=== PATIENT | male | born 1970 | race Caucasian/White ===

== ENCOUNTER 2025-08-09 12:01 | Emergency (ER) | payer OTHER, SELFPAY ==
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
[2025-08-09 12:02] VITALS: BP 169/120; PULSE 86; RESP 16; TEMP 36.8; O2SAT 97
[2025-08-09] MEDS: HYDROcodone/acetaminophen (*CRX) 5-325 MG TABLET 1 TAB PO (12:42)
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
--- OUTSIDE RECORDS SUMMARY | 2025-08-09 12:55 | XMS_ITS | Patient Health Record ---
Author Organization [facility] Address [address] [address] [place] [address] Care Team Providers Care Security Operations Analyst Name Role Phone Eugenio Wright Unavailable [phone] Reason For Referral No Information Problems Problem Type SNOMED Code ICD Code Onset Dates Problem Status W/U Status Risk Notes Problem Lumbar radiculopathy (497514430) Radiculopat hy, lumbar region (M54.16) Active confirmed Plan Of Treatment Pending Test Test Name Order Date EMG LE 5+with NC +6 Nerves 08/07/2019
--- OUTSIDE RECORDS SUMMARY | 2025-08-09 12:55 | XMS_ITS | Encounter Summary ---
Author Organization [facility] Address [address] [facility] [place] [address] Care Team Providers Care Public Improvement Inspector Name Role Phone Sweetie Jacome MD Primary Care Provider Anisa Tobin RN Unavailable [phone] Miak Layton MD Unavailable Gold Hawkins Unavailable Stephenie Banda RN Unavailable [phone] Nilson Torres MD Unavailable Sophia Schulz RN Unavailable Juan David Lindsay MD Unavailable Sweetie Jacome MD Unavailable Gilberto Caballero MD Unavailable Sweetie Jacome MD Unavailable [phone] Gilberto Caballero MD Unavailable Encounter Details Date Type Department Care Team (Late st Contact Info) Description 12/10/2014 Therapy Visit [facility] [address] [place] [address] Unknown, Provider Social History Tobacco Use Types Packs/Day Years Used Date Smoking Tobacco: Never Smokeless Tobacco: Never Alcohol Use Standard Drinks/Week Comments No 0 (1 standard drink = 0.6 oz pur e alcohol) Sex and Gender Information Value Date Recorded Sex Assigned at Not on file Legal Sex Male 7:32 PM CDT Gender Identity Not on file Sexual Orientation Not on file 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 Answer Date of Assessment Author No 10/01/2014 7:23 AM Romina Brooke RN * Is person blind or have serious difficulty seeing? Answer Date of Assessment Author No 10/01/2014 7:23 AM Romina Brooke RN * Does person have serious difficulty walking/climbing stairs? Answer Date of Assessment Author No 10/01/2014 7:23 AM Romina Brooke RN * Does person have difficulty dressing/bathing? Answer Date of Assessment Author No 10/01/2014 7:23 AM Romina Brooke RN * Does person have difficulty doing errands alone? Answer Date of Assessment Author No 10/01/2014 7:23 AM Romina Brooke RN documented as of this encounter Mental Status * Does person have difficulty concentrating/remembering/making decisions? Answer Entry Date Author No 10/01/2014 7:23 AM Romina Brooke RN documented in this encounter Plan of Treatment Not on file documented as of this encounter Visit Diagnoses Not on filedocumented in this encounter Care Teams Public Improvement Inspector Relationship Specialty Start Date End Date Sweetie Jacome MD [address] [place] [address] PCP - General Family Medicine 08/22/14 Sweetie Jacome MD [address] [place] [address] PCP - Attributed-Exclusive Choice 03/31/17 02/21/19 Gilberto Caballero MD [address] [place] [address] PCP - Attributed-Exclusive Choice 02/22/19 04/23/19 Sweetie Jacome MD [address] [facility] [address] [place] [address] PCP - Attributed-MSSP 03/16/19 05/15/19 Gilberto Caballero MD [address] [place] [address] [address] [place] [address] PCP - Attributed-MSSP 05/16/19 01/01/21 Anisa Tobin RN Maintenance Technician 3Rd Shift 09/30/14 07/09/18 Maik Layton MD Orthopedic Surgery 08/17/15 Gold Hawkins [address] [facility] [address] [place] [address] Care Coordination Specialist Care Management 03/08/17 03/15/17 Stephenie Banda, RN Helper Steel FabricationDrying Equipment Operator 03/08/17 03/16/17 [place] [id number] [address] Neurological Surgery 03/22/17 Sophia Schulz RN Helper Steel FabricationDrying Equipment Operator 11/07/17 11/12/17 Juan David Lindsay MD [facility] [address] [place], [place] [id number] Anesthesiology 05/14/18 documented as of this encounter
--- OUTSIDE RECORDS SUMMARY | 2025-08-09 12:55 | XMS_ITS | Clinical Summary ---
Author Organization [facility] [employer] Address [address] [place] [address] Care Team Providers Care Cableman Name Role Phone Sweetie Jacome MD Primary Care Provider [phone] Maik Layton MD Unavailable [phone] Nilson Torres MD Unavailable Juan David Lindsay MD Unavailable [phone] Source Comments [facility],non-owned Affiliates and Associated Physician Practices is amultiple site organization consisting of ambulatory clinics and hospital sitesin [place], [place], [place] and [place]. This disclosure is being madepursuant to the Care Everywhere program and may not contain all information available regarding this patient. Last updated 18.[facility] Allergies No known active allergies Medications * Be aware that medications may not be up to date on this document. Alwaysverify current medications with the patient. albuterol HFA (PROVENTIL;ANASTACIA TOLIN;PROAIR) 108 (90 BASE) MCG/ACT inhaler Inhale 2 Puffs by mouth every 4 hours as needed for Shortness of Breath, Wheezing or Cough 1 Inhaler 5 04/14/20 17 Active Additional Information Patient not taking.Reported on 07/22/2018 losartan-hydro CHLOROthiazide (HYZAAR) 100-25 MG tabletIndicati ons:Hypertensi on Take 1 tablet by mouth once daily Reasons: High Blood Pressure Disorder 30 tablet 5 05/28/20 18 Active amitriptyline (ELAVIL) 50 MG tabletIndicati ons:Pain Take 1 tablet by mouth at bedtime Reasons: Pain 30 tablet 5 07/10/20 18 Active ALPRAZolam (XANAX) 0.25 MG tabletIndicati ons:Other chest pain,Family history of early CAD,Panic attack Take 1 tablet by mouth 3 times daily as needed for Anxiety 20 tablet 07/24/20 18 Active naproxen (NAPROSYN) 500 MG tablet Take 1 tablet by mouth 2 times daily 60 tablet 07/30/20 18 Active celecoxib (CELEBREX) 200 MG capsuleIndicat ions:Back Pain Take 1 capsule by mouth once daily Reasons: Backache 30 capsule 5 11/06/19 19 Active pregabalin (LYRICA) 150 MG capsuleIndicat ions:Back Pain Take 1 capsule by mouth 2 times daily Reasons: Backache 60 capsule 11/06/19 19 Active DULoxetine (CYMBALTA) 60 MG capsuleIndicat ions:Chronic right-sided low back pain with right-sided sciatica,Moder ate single current episode of major depressive disorder (HCC) TAKE 1 CAPSULE BY MOUTH EVERY DAY FOR MAJOR DEPRESSIVE DISORDER OR MUSCULOSKELETAL PAIN 30 capsule 11/06/19 19 Active cyclobenzaprin e (FLEXERIL) 10 MG tabletIndicati ons:Chronic right-sided low back pain with right-sided sciatica Take 1 tablet by mouth 3 times daily as needed (BACK PAIN) 90 tablet 11/30/19 19 Active Active Problems Problem Noted Date Diagnosed Date Chronic midline low back pain with bilateral sci atica 11/07/2017 Moderate single current epis ode of major depressive disorder 02/14/2017 Chronic gout of right foot 02/14/2017 Essential hypertension 02/01/2017 Hyperlipemia, mixed 02/01/2017 Overview (02/01/2017): 10-year risk = 6.2 Statin therapy recommended: No Acute midline low back pain with bilateral sciat ica 06/14/2016 Left-sided thoracic back pain 06/02/2015 Resolved Problems Problem Noted Date Diagnosed Date Resolved Date Hypoxia 03/07/2017 03/22/2017 Chronic midline low back alvarado n with right-sided sciatica 07/13/2016 05/10/2018 Chronic right-sided low back pain with right-sided sciatica 06/14/2016 05/10/2018 Right-sided low back pain wi th right-sided sciatica 06/02/2015 05/10/2018 Herniation of intervertebral disc between L4 and L5 09/02/2014 02/14/2017 Immunizations Immunization Administration Dates Next Due TDAP (7yrs+) 05/03/2017 Family History Medical History Relation Name Comments Heart Failure Father Relation Name Status Comments Father Social History Tobacco Use Types Packs/Day Years Used Date Smoking Tobacco: Never Smokeless Tobacco: Never Tobacco Cessation:Counseling Given: Yes Alcohol Use Standard Drinks/Week Comments Yes 0 (1 standard drink = 0.6 oz pur e alcohol) occasionally Sex and Gender Information Value Date Recorded Sex Assigned at Not on file Legal Sex Male 7:32 PM CDT Gender Identity Not on file Sexual Orientation Not on file 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 Not on file Not on dewayne e Last Filed Vital Signs Vital Sign Reading Time Taken Comments Blood Pressure 159/97 07/30/2018 10:52 PM CDT Pulse 78 07/30/2018 10:52 PM CDT Temperature 37 C (98.6 F) 07/30/2018 8:17 PM CDT Respiratory Rate 20 07/30/2018 10:52 PM CDT Oxygen Saturation 97% 07/30/2018 10:52 PM CDT Inhaled Oxygen Concentration 21% 03/05/2017 9 :07 AM CDT Weight 131.5 kg (290 lb) 07/30/2018 8:51 PM CDT Height 182.9 cm (6') 07/30/2018 8:43 PM CDT Body Mass Index 39.33 07/30/2018 8:43 PM CDT Plan of Treatment Health Maintenance Due Date Last Done Comments COLOGUARD (AGES 45-75) - COLON CA SCREENING 1972 COLON MONITORING 1972 COLONOSCOPY - COLON CA SCREENING 1972 CT COLONOGRAPHY - COLON CA SCREENING 1972 Colorectal Cancer Screening 1972 FIT - COLON CA SCREENING 1972 FLEX SIG - COLON CA SCREENING 1972 HIV SCREENING 1987 HEPATITIS C SCREENING 06/18/1990 HEPATITIS B VACCINE (1 of 3 - 19+ 3-dose series) 1991 SCREENING FOR DIABETES 07/30/2021 8, 07/22/2018, 03/11/2017, Additional history exists LIPID TESTING 01/31/2022 01/31/2017 PNEUMOCOCCAL VACCINE 50+ (1 of 1 - PCV) 2022 ZOSTER VACCINE (1 of 2) 2022 DEPRESSION SCREENING 10/16/2024 COVID-19 VACCINE (1 - 2023- season) 2025 INFLUENZA VACCINE (#1) 2025 DTAP/TDAP/TD VACCINES (2 - Td or Tdap) 05/03/2027 05/03/2017 HIB VACCINE Aged Out No longer eligi ble based on patient's age to complete this topic HPV VACCINE Aged Out No longer eligi ble based on patient's age to complete this topic MENINGOCOCCAL (Group B) VACCINE SHARED DECISION-MAKING Aged Out No longer eligible based on patient's age to complete this topic MENINGOCOCCAL GROUPS A/C/Y/W VACCINE Aged Out No longer eligible based on patient's age to complete this topic Goals Goal Patient Goal Type Associated Problems Recent Progress Patient-Stated? Author Symptoms that interfere with function Barrier No Stephenie Banda, BENNETT Strength - Transportation Strength No Stephenie Banda RN Medical Devices Implanted Type Area Director Ambulatory Device Identifier Shelf Expiration Date Model / Serial / Lot Solera Set Screw Implanted:Qty : 4 on 03/02/2017 by Nilson Torres MD at [facility]bar [id number] / / Solera Screw 7.5x50mm Implanted:Qty : 4 on 03/02/2017 by Nilson Torres MD at [facility] [id number] / / Solera Curved Toni Implanted:Qty : 2 on 03/02/2017 by Nilson Torres MD at [facility] [id number] / / Graft Bone Grftn Dbm Plif 5x2.5cm - [id number] Implanted:Qty : 1 on 03/02/2017 by Nilson Torres MD at [facility] [employer] 10/27/2019 [id number] / [id number] / Spcr Spnl 32mm 16mm Cpstn Peek-Optm Lmbr Implanted:Qty : 1 on 03/02/2017 by Nilson Torres MD at [facility] Lumbar [employer] 05/25/2018 [id number] / / [id number] Procedures Procedure Name Priority Date/Time Associated Diagnosis Comments COMPREHENSIVE METABOLIC PANEL STAT 07/30/2018 9:08 PM CDT LIPID PROFILE Routine 01/31/2017 10:54 AM CDT Essential hypertension from Last 3 Months or Most Recently Relevant to Health Maintenance Results * (ABNORMAL) COMPREHENSIVE METABOLIC PANEL (07/30/2018 9:08 PM CDT) Glucose 126(H) 74 - 106 mg/dL 07/30/2018 9:31 PM CDT [facility] Sodium 136 136 - 145 mmol/L 07/30/2018 9:31 PM CDT [facility] Potassium 3.3(L) 3.5 - 5.1 mmol/L 07/30/2018 9:31 PM CDT [facility] Chloride 102 98 - 107 mmol/L 07/30/2018 9:31 PM CDT [facility] CO2 25 22 - 31 mmol/L 07/30/2018 9:31 PM CDT [facility] Calcium 9.1 8.5 - 10.1 mg/dL 07/30/2018 9:31 PM CDT [facility] Anion Gap 9 8 - 16 mmol/L 07/30/2018 9:31 PM CDT [facility] BUN 9 7 - 21 mg/dL 07/30/2018 9:31 PM CDT [facility] Creatinine 1.08 0.50 - 1.30 mg/dL 07/30/2018 9:31 PM CDT [facility] Alkaline Phosphatase 122 38 - 126 U/L 07/30/2018 9:31 PM CDT [facility] ALT 42 13 - 61 U/L 07/30/2018 9:31 PM CDT [facility] AST 24 5 - 40 U/L 07/30/2018 9:31 PM CDT [facility] Protein Total 8.7(H) 6.4 - 8.2 gm/dL 07/30/2018 9:31 PM CDT [facility] Albumin 4.6 3.4 - 5.0 gm/dL 07/30/2018 9:31 PM CDT [facility] Bilirubin Total 0.7 0.2 - 1.0 mg/dL 07/30/2018 9:31 PM CDT [facility] eGFR by MDRD >60 >60 mL/min/1.7 3m2 07/30/2018 9:31 PM CDT [facility] eGFR by MDRD >60 >60 mL/min/1.7 3m2 07/30/2018 9:31 PM CDT [facility] Blood BLOOD SPECIMEN / Unknown Venipuncture / Unknown 07/30/2018 9:08 PM CDT 07/30/2018 9:11 PM CDT Zheng Soto MD LAB - CHEMISTRY ORDERABLES Fi nal Result [facility] [address] [place] [address] * (ABNORMAL) LIPID PROFILE (01/31/2017 10:54 AM CDT) Cholesterol 232(H) <200 mg/dL [facility] ACCOUNT BILL Triglycerides 183(H) <150 mg/dL [facility] ACCOUNT BILL HDL Cholesterol 36(L) >40 mg/dL [facility] ACCOUNT BILL VLDL Calculated 37(H) <=30 mg/dL [facility] ACCOUNT BILL LDL Calculated 159(H) <130 mg/dL [facility] ACCOUNT BILL Blood BLOOD SPECIMEN / Unknown 01/31/2017 10:54 AM CDT 01/31/2017 Narrative Resulting Agency Comment [facility] [address] [place] [id number] Sweetie Jacome MD LAB - CHEMISTRY ORDERABLES F inal Result [facility] ACCOUNT BILL [address] [place] [address] from Last 3 Months or Most Recently Relevant to Health Maintenance Insurance [facility]IC[facility] [employer] LIABILITY Republican [facility] Advance Directives * Full Code (Latest Code Status on File) Date Activated Date Inactivated Comments 03/07/2017 1:40 PM 03/15/2017 11:54 AM * Full Code Date Activated Date Inactivated Comments 03/02/2017 3:01 PM 03/07/2017 1:40 PM * Full Code Date Activated Date Inactivated Comments 09/29/2014 1:09 PM 10/01/2014 10:48 AM Care Teams Cableman Relationship Specialty Start Date End Date Sweetie Jacome MD [address] [place] [address] PCP - General Family Medicine 08/22/14 Maik Layton MD [address] [place] [address] Orthopedic Surgery 08/17/15 [place] [address] [facility] [address] [place] [address] Neurological Surgery 03/22/17 Juan David Lindsay MD [facility] [address] [place] [address] Anesthesiology 05/14/18
--- OUTSIDE RECORDS SUMMARY | 2025-08-09 12:55 | XMS_ITS | Encounter Summary ---
Author Organization [facility] Address [address] [facility] [place] [address] Care Team Providers Care Shellfish Manager Name Role Phone Sweetie Jacome MD Primary Care Provider Anisa Tobin RN Unavailable [phone] Maik Layton MD Unavailable Nilson Torres MD Unavailable Sophia Schulz RN Unavailable Juan David Lindsay MD Unavailable Sweetie Jacome MD Unavailable [phone] Gilberto Caballero MD Unavailable [phone] Sweetie Jacome MD Unavailable [phone] Gilberto Caballero MD Unavailable [phone] Encounter Details Date Type Department Care Team (Late st Contact Info) Description 03/29/2017 [facility] Outpatient Visit [facility] [address] [place], [place] [id number] Document, Scanned Social History Tobacco Use Types Packs/Day Years Used Date Smoking Tobacco: Never Smokeless Tobacco: Never Alcohol Use Standard Drinks/Week Comments Yes 0 (1 standard drink = 0.6 oz pur e alcohol) occasionally Sex and Gender Information Value Date Recorded Sex Assigned at Not on file Legal Sex Male 7:32 PM CDT Gender Identity Not on file Sexual Orientation Not on file 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 Answer Date of Assessment Author No 03/02/2017 6:09 AM Adalgisa Torres RN * Is person blind or have serious difficulty seeing? Answer Date of Assessment Author No 03/02/2017 6:09 AM Adalgisa Torres RN * Does person have serious difficulty walking/climbing stairs? Answer Date of Assessment Author No 03/02/2017 6:09 AM Adalgisa Torres RN * Does person have difficulty dressing/bathing? Answer Date of Assessment Author No 03/02/2017 6:09 AM Adalgisa Torres RN * Does person have difficulty doing errands alone? Answer Date of Assessment Author No 03/02/2017 6:09 AM Adalgisa Torres RN documented as of this encounter Mental Status * Does person have difficulty concentrating/remembering/making decisions? Answer Entry Date Author No 03/02/2017 6:09 AM Adalgisa Torres RN documented in this encounter Plan of Treatment Not on file documented as of this encounter Goals Goal Patient Goal Type Associated Problems Recent Progress Patient-Stated? Author Symptoms that interfere with function Barrier No Stephenie Banda, BENNETT Strength - Transportation Strength No Stephenie Banda RN documented as of this encounter Visit Diagnoses Not on filedocumented in this encounter Care Teams Shellfish Manager Relationship Specialty Start Date End Date Sweetie Jacome MD [address] [place] [address] PCP - General Family Medicine 08/22/14 Sweetie Jacome MD [address] [place] [address] PCP - Attributed-Exclusive Choice 03/31/17 02/21/19 Gilberto Caballero MD [address] [place] [address] PCP - Attributed-Exclusive Choice 02/22/19 04/23/19 Sweetie Jacome MD [address] [place] [address] PCP - Attributed-MSSP 03/16/19 05/15/19 Gilberto Caballero MD [address] [place] [address] [address] [place] [address] PCP - Attributed-MSSP 05/16/19 01/01/21 Anisa Tobin RN Tactical Response Group Officer 09/30/14 07/09/18 Maik Layton MD Orthopedic Surgery 08/17/15 [place] [address] [place] [facility] [address] [place] [address] Neurological Surgery 03/22/17 Sophia Schulz RN Information Assurance OfficerParty Bus Driver 11/07/17 11/12/17 uJan David Lindsay MD [facility] [address] [place] [address] Anesthesiology 05/14/18 documented as of this encounter
--- OUTSIDE RECORDS SUMMARY | 2025-08-09 12:55 | XMS_ITS | Clinical Summary ---
Author Organization [facility] [address] Address [address] [place] [address] Care Team Providers Care Software Consultant Name Role Phone Trudi Gomes PT Unavailable Unavailable Unknown, Notinfile Primary Care Provider Unavail able Allergies No known active allergies Medications naproxen (ALEVE) 220 mg tablet Take by mouth 2 (two) times a day with meals Active DULoxetine DR (CYMBALTA) 60 mg capsule 01/03/20 25 Active lisinopril-hydroC HLOROthiazide (ZESTORETIC) 20-25 mg per tablet 1 tablet(s), Oral, daily, 90 tablet(s), Tablet(s), 0, 0, Route to Pharmacy Electronically, [place] [id number], [id number] , 188.4, cm, 11/29/24 8:42:00 ACCOUNTING REPRESENTATIVE, Height, 127, kg, 11/29/24 8:42:00 ACCOUNTING REPRESENTATIVE, Weight 11/29/19 25 Active metFORMIN XR (GLUCOPHAGE XR) 750 mg 24 hr tablet 1 tablet (750 mg total) 11/29/19 25 Active atorvastatin (LIPITOR) 40 mg tablet Take 1 tablet (40 mg total) by mouth daily Active vitamin D3-vitamin K2 25 mcg (1,000 unit)-90 mcg tablet,disintegra ting Take by mouth Active pregabalin (LYRICA) 200 mg capsule Take 1 capsule (200 mg total) by mouth 3 (three) times a day 90 capsule 2 06/07/20 25 Active traMADoL (ULTRAM) 50 mg tabletIndications :Chronic lumbar radiculopathy Take 1 tablet (50 mg total) by mouth 2 (two) times a day as needed for pain for pain 30 tablet 2 06/21/20 25 Active Active Problems Problem Noted Date Diagnosed Date Hypertension, essential 02/10/2021 Assessment & Plan (02/10/2021 11:44 AM CDT): Blood pressure 160/100 taking twice a day office History of elevated blood pressure in the past, per patient. Start lisinopril 20 mg a day, follow-up in 6 weeks Lab test as below Discussed home blood pressure monitoring Discussed diet and exercise Chronic lumbar radiculopathy 02/10/2021 Assessment & Plan (02/10/2021 11:44 AM CDT): Patient has chronic low back pain. Status post laminectomy L4-L5 and fusion L4-L5, done 2016 Continue having chronic pain. Was seen pain management and [facility], last evaluation 2 years ago. Wants to see a different pain management. Referral done to Pain Management Patient stated was taking gabapentin without improvement of the pain S/P lumbar spinal fusion 02/10/2021 Assessment & Plan (02/10/2021 11:45 AM CDT): Laminectomy L4-L5 done 2014 Lumbar spinal fusion L4-L5 done 2016 Obesity (BMI 30-39.9) 02/10/2021 Overview (02/10/2021): Discussed importance of healthy diet and exercise Encounters Date Type Department Care Team Description 07/09/2025 8:56 AM CDT - 07/09/2025 11:59 PM CDT Hospital Encounter [facility] [place] [id number] [place] [address], [address] [place] [id number] Hunter Shah MD Lumbar radiculopathy (Primary Dx); Lumbar post-laminectomy syndrome; Chronic bilateral low back pain with bilateral sciatica; Chronic prescription opiate use Discharge Disposition: Discharge to home or self care from Last 3 Months Immunizations Immunization Administration Dates Next Due Influenza, Unspecified 07/16/2020(Deferr ed: Patient decision),07/16/2019(Deferred: Patient decision) Tdap 05/03/2017 Surgical History Surgery Date Site/Laterality Comments BACK SURGERY Medical History Medical History Date Comments Low back pain Chronic pain disorder Hypertension Extremity pain Family History Relation Name Status Comments Mother Alive Social History Tobacco Use Types Packs/Day Years Used Date Smoking Tobacco: Never Smokeless Tobacco: Never Tobacco Cessation:Counseling Given: Not Answered Alcohol Use Standard Drinks/Week Comments Yes 1 (1 standard drink = 0.6 oz pur e alcohol) PHQ-2 Answer Date Recorded PHQ-2 Total Score (If total score is 3 or more points, staff should administer the PHQ-9) 0 02/10/2021 AUDIT-C Answer Date Recorded Q1: How often do you have a drink containing alc ohol? 2-4 times a month 07/09/2025 Q2: How many drinks containi ng alcohol do you have on a typical day when you are drinking? 1 or 2 07/09/2025 Q3: How often do you have si x or more drinks on one occasion? Never 07/09/2025 Personal Safety Answer Date Recorded Have you ever been in or are you currently in a harmful physical or emotional relationship or is someone making you feel afraid or unsafe? Denies 09/02/2024 Sex and Gender Information Value Date Recorded Sex Assigned at Not on file Legal Sex Male 4:32 PM ACCOUNTING REPRESENTATIVE Gender Identity Not on file Sexual Orientation Not on file Obstetrics History Last Filed Vital Signs Vital Sign Reading Time Taken Comments Blood Pressure 183/110 07/09/2025 9:03 AM CDT Pulse 75 07/09/2025 9:03 AM CDT Temperature 36.5 C (97.7 F) 07/09/2025 9:03 AM CDT Respiratory Rate 18 07/09/2025 9:03 AM CDT Oxygen Saturation 98% 07/09/2025 9:03 AM CDT Inhaled Oxygen Concentration - - Weight 127 kg (280 lb) 07/09/2025 9:03 AM CDT Height 188 cm (6' 2) 07/09/2025 9:03 AM CDT Body Mass Index 35.95 07/09/2025 9:03 AM CDT Plan of Treatment Health Maintenance Due Date Last Done Comments Colon Cancer Screening-Colonoscopy 1972 Hepatitis C Screening 1972 Prostate Cancer Screening-PSA 1972 Hepatitis B Screening 1990 Depression Screening 02/10/2022 02/10/2021 Regular Well Visit/Exam 18-64 02/10/2022 02/10/2021 Influenza Vaccine (#1) 2025 DTaP/Tdap/Td Vaccine (3 - Td or Tdap) 01/31/2035 01/31/2025, 05/03/2017, 05/03/2017 Zoster Vaccine Completed 04/15/2024, 12/27/2023 Pneumococcal vaccine <65 Aged Out No longer eligible based on patient's age to complete this topic Goals Goal Patient Goal Type Associated Problems Recent Progress Patient-Stated? Author CCM Chronic Pain Care Plan Chronic Care Management Yes Mari Funez, RN Note: Problem: Chronic Pain Goals: 1. Minimize further functional decline 2. Maximize quality of life 3. Control pain Strategies: - Activity/exercise program recommendation - Conservative stepwise pain medicine strategy with multi-disciplinary approach - Recommend healthy lifestyle strategies and compensatory methods as needed Reduce the likelihood of falling Lifestyle No Mari Funez, BENNETT Note: Below are four things you can do to prevent falls: Begin an exercise program to improve your leg strength & balance Ask your doctor or pharmacist to review your medicines Get annual eye check-ups & update your eyeglasses Make your home safer by: Removing clutter & tripping hazards Putting railings on all stairs & adding grab bars in the bathroom Having good lighting, especially on stairs Contact your local community or senior center for information on exercise, fall prevention programs, or options for improving home safety. Insurance [employer] PPO [employer] PPO [employer] PPO Care Teams Software Consultant Relationship Specialty Start Date End Date Unknown, Notinfile PCP - General 07/12/23 Trudi Gomes, PT Physical Therapist Physical Therapy 06/10/21
[2025-08-09 13:17] VITALS: BP 163/112; PULSE 80; RESP 15; O2SAT 97
[2025-08-09 14:05] VITALS: BP 143/97; PULSE 84; RESP 16; O2SAT 98
== END 2025-08-09 14:07 | disposition home or self-care (01) ==
PROVIDERS: Emergency Provider Emergency Medicine
DX: S13.4XXA Sprain of ligaments of cervical spine, initial encounter (principal); S29.012A Strain of muscle and tendon of back wall of thorax, initial encounter; V40.5XXA Car driver injured in collision with pedestrian or animal in traffic accident, initial encounter
CPT/HCPCS: 70450; 71250; 72125; 72128; 74176; 99284; A9270